=== PATIENT | male | born 1990 | race Caucasian/White ===

== ENCOUNTER 2018-02-20 15:40 | Emergency (ER) | payer BC ==
[~2018-02-20] VITALS: Ht 182.9 cm; Wt 113.4 kg
[2018-02-20 15:48] VITALS: BP_SYST 145
[2018-02-20] MEDS ORDERED: MORPHINE 4 MG/ML INJ. SYRINGE IVP ONE (16:30)
[2018-02-20 16:39] LABS: BASOPHILS % (AUTO) 0.6 % (0.0-2.0); EOSINOPHILS # (AUTO) 0.2 K/uL (0.0-0.4); EOSINOPHILS % (AUTO) 2.3 % (0.0-4.0); HEMATOCRIT 43.9 % (36-54); HEMOGLOBIN 15.1 g/dL (14.0-18.0); LYMPHOCYTES # (AUTO) 2.3 K/uL (1.0-5.5); LYMPHOCYTES % (AUTO) 35.6 % (20.5-51.5); MEAN CORPUSCULAR HEMOGLOBIN 32 pg (27-31); MEAN CORPUSCULAR HGB CONC 34 % (32-36); MEAN CORPUSCULAR VOLUME 92 fL (79.0-98.0); MONOCYTES # (AUTO) 0.5 K/uL (0.0-1.0); MONOCYTES % (AUTO) 8.1 % (1.7-9.3); NEUTROPHILS # (AUTO) 3.6 K/uL (1.8-7.7); NEUTROPHILS % (AUTO) 53.4 % (40.0-70.0); PLATELET COUNT (AUTO) 246 K/uL (130-430); RED BLOOD CELL COUNT(AUTO) 4.78 MIL/uL (4.2-6.2); RED CELL DISTRIBUTION WIDTH 11.5 % (9.0-15.0); WHITE BLOOD COUNT (AUTO) 6.6 K/uL (4.8-10.8)
[2018-02-20 16:50] LABS: CALCIUM 8.8 mg/dL (8.4-11.0); CREATININE 1.08 mg/dL (0.55-1.30); POTASSIUM 3.6 mmol/L (3.5-5.1)
[2018-02-20 16:52] VITALS: BP_SYST 132
[2018-02-20 16:56] LABS: ALBUMIN 4.2 g/dL (3.4-4.8); BILIRUBIN,URINE NEGATIVE (NEGATIVE); BLOOD, URINE NEGATIVE (NEGATIVE); CLARITY/URINE CLEAR (CLEAR); COLOR,URINE YELLOW (YELLOW); GLUCOSE,URINE NEGATIVE (NEGATIVE); KETONES,URINE NEGATIVE (NEGATIVE); LEUKOCYTE ESTERASE ,URINE NEGATIVE (NEGATIVE); NITRITE, URINE NEGATIVE (NEGATIVE); PROTEIN URINE NEGATIVE (NEGATIVE); TOTAL BILIRUBIN 0.5 mg/dL (0.0-1.0); UROBILINOGEN,URINE 0.2 (0.2-1.0)
== END 2018-02-20 16:56 | disposition short-term general hospital (02) ==
LOC: SED 15:40
DX: M54.5 Low back pain (principal); R51 Headache; R32 Unspecified urinary incontinence; Z90.89 Acquired absence of other organs; V89.2XXA Person injured in unspecified motor-vehicle accident, traffic, initial encounter; Y93.9 Activity, unspecified; Y92.410 Unspecified street and highway as the place of occurrence of the external cause; Y99.8 Other external cause status
CPT/HCPCS: 36415; 80053; 81003; 85025; 96374; 99285; J2270